=== PATIENT | female | born 1960 | race Caucasian/White ===

== ENCOUNTER → 2020-07-31 08:46 | Outpatient (BNVA) | payer OTHER, SELFPAY | PROVIDERS: PCP Family Medicine; Visit Provider Family Medicine | DX: I10 Essential (primary) hypertension (principal) | CPT/HCPCS: 80053; 80061; 82043; 85025 ==

== ENCOUNTER → 2020-08-20 13:57 | Outpatient (BNVA) | payer OTHER, SELFPAY | PROVIDERS: PCP Family Medicine; Visit Provider Obstetrics & Gynecology | DX: N93.9 Abnormal uterine and vaginal bleeding, unspecified (principal) | CPT/HCPCS: 82670; 83001 ==

== ENCOUNTER → 2020-09-01 15:29 | Outpatient (BNVA) | payer OTHER, SELFPAY | PROVIDERS: PCP Family Medicine; Visit Provider Obstetrics & Gynecology | DX: Z12.4 Encounter for screening for malignant neoplasm of cervix (principal); N93.9 Abnormal uterine and vaginal bleeding, unspecified | CPT/HCPCS: 88175 ==

== ENCOUNTER → 2020-10-02 08:42 | Outpatient (BNVA) | payer OTHER, SELFPAY | PROVIDERS: PCP Family Medicine; Visit Provider Obstetrics & Gynecology | DX: N93.9 Abnormal uterine and vaginal bleeding, unspecified (principal) | CPT/HCPCS: 76830 ==

== ENCOUNTER → 2021-03-02 11:46 | Outpatient (BNVA) | payer OTHER, SELFPAY | PROVIDERS: PCP Family Medicine; Visit Provider Family Medicine | DX: N93.9 Abnormal uterine and vaginal bleeding, unspecified (principal); I10 Essential (primary) hypertension | CPT/HCPCS: 80053 ==

== ENCOUNTER 2021-06-05 08:39 | Outpatient (CLI) | payer OTHER, SELFPAY ==
--- NOTE | 2021-06-05 08:47 | MM_ITS ---
WS: [id number] BILATERAL 3D TOMOSYNTHESIS DIGITAL SCREENING MAMMOGRAPHY WITH CAD CLINICAL INFORMATION: SCREENING HISTORY: Screening mammogram. No current complaints. COMPARISON: January 18, 2020 TECHNIQUE: Bilateral CC and MLO views. FINDINGS: Scattered fibroglandular densities bilaterally. Small oil cyst RIGHT breast unchanged. No suspicious focal mass, asymmetry, calcifications, or architectural distortion. No evidence of malignancy. MM/[place] [id number] IMPRESSION: BI-RADS: 2-Benign FOLLOW UP: 1 Year Follow-up Recommend return to annual screening mammography.
== END 2021-06-05 08:40 | disposition home or self-care (01) ==
LOC: RADSHAW 08:39
PROVIDERS: PCP Family Medicine; Visit Provider Family Medicine
DX: Z12.31 Encounter for screening mammogram for malignant neoplasm of breast (principal)
CPT/HCPCS: 77063; 77067

== ENCOUNTER → 2021-08-07 10:54 | Outpatient (BNVA) | payer OTHER, SELFPAY | PROVIDERS: PCP Family Medicine; Visit Provider Family Medicine | DX: I10 Essential (primary) hypertension (principal) | CPT/HCPCS: 80053; 80061; 85025 ==

== ENCOUNTER → 2022-08-03 10:07 | Outpatient (BNVA) | payer OTHER, SELFPAY | PROVIDERS: PCP Family Medicine; Visit Provider Family Medicine | DX: I10 Essential (primary) hypertension (principal) | CPT/HCPCS: 80053; 80061; 82043; 85025 ==

== ENCOUNTER 2022-08-23 10:05 | Outpatient (CLI) | payer OTHER, SELFPAY ==
--- NOTE | 2022-08-23 10:10 | MM_ITS ---
WS: [id number] BILATERAL SCREENING DIGITAL TOMOSYNTHESIS MAMMOGRAM WITH CAD HISTORY: screening mammogram COMPARISON: 06/05/2021, 01/18/2020 and 01/14/2020 Bilateral CC and MLO views with tomosynthesis and synthetic mammography submitted. Computer aided det ection analyzed. Breast composition: There are scattered areas of fibroglandular density. No suspicious masses, microc alcifications or architectural distortion. Benign calcification central RIGHT breast towards 12:00. MM/[place] [id number] IMPRESSION: BI-RADS: 2-Benign FOLLOW UP: 1 Year Follow-up
== END 2022-08-23 10:06 | disposition home or self-care (01) ==
PROVIDERS: PCP Family Medicine; Visit Provider Family Medicine
DX: Z12.31 Encounter for screening mammogram for malignant neoplasm of breast (principal)
CPT/HCPCS: 77063; 77067

== ENCOUNTER → 2023-08-02 09:12 | Outpatient (BNVA) | payer OTHER, SELFPAY | PROVIDERS: PCP Family Medicine; Visit Provider Family Medicine | DX: I10 Essential (primary) hypertension (principal); Z13.6 Encounter for screening for cardiovascular disorders; E11.9 Type 2 diabetes mellitus without complications; Z01.419 Encounter for gynecological examination (general) (routine) without abnormal findings; Z12.31 Encounter for screening mammogram for malignant neoplasm of breast | CPT/HCPCS: 80053; 80061; 82043; 85025; 87624 ==

== ENCOUNTER 2023-08-25 09:05 | Outpatient (CLI) | payer OTHER, SELFPAY ==
--- NOTE | 2023-08-25 09:30 | MM_ITS ---
WS: [id number] BILATERAL SCREENING DIGITAL TOMOSYNTHESIS MAMMOGRAM WITH CAD HISTORY: screening COMPARISON: 08/23/2022, 06/05/2021 and 06/11/2015 Bilateral CC and MLO views with tomosynthesis and synthetic mammography submitted. Computer aided det ection analyzed. Breast composition: There are scattered areas of fibroglandular density. No suspicious masses, microc alcifications or architectural distortion. Benign calcifications in each breast. MM/[place] [id number] IMPRESSION: BI-RADS: 2-Benign FOLLOW UP: 1 Year Follow-up
== END 2023-08-25 09:06 | disposition home or self-care (01) ==
LOC: RAD 09:05
PROVIDERS: PCP Family Medicine; Visit Provider Family Medicine
DX: Z12.31 Encounter for screening mammogram for malignant neoplasm of breast (principal); R92.323 Mammographic fibroglandular density, bilateral breasts; R92.1 Mammographic calcification found on diagnostic imaging of breast
CPT/HCPCS: 77063; 77067; 80053; 80061; 82043; 85025; 87624

== ENCOUNTER 2024-01-20 19:18 | Emergency (ER) | payer OTHER, SELFPAY ==
[2024-01-20 19:35] VITALS: BP 150/100; PULSE 93; RESP 17; TEMP 36.7; O2SAT 99; BMI 32.3
--- NOTE | 2024-01-20 19:40 | XRR_ITS ---
PROCEDURE INFORMATION: Exam: XR Right Hip Exam date and time: 01/20/2024 8:08 PM Age: 63 years old Clinical indication: Injury or trauma; Fall; Other: Pain TECHNIQUE: Imaging protocol: Radiologic exam of the right hip. Views: 1 view hip with pelvis when performed. COMPARISON: US transvaginal [id number] 10/02/2020 8:44 AM FINDINGS: Bones/joints: Severe right and [id number] left hip osteoarthritis. Soft tissues: Unremarkable. XR/XR hip RT 2-3V wo/w pel* [id number] IMPRESSION: 1. Negative for fracture or dislocation, consider further evaluation with a CT scan if concern for fracture remains clinically given decreased bone mineral density. 2. Severe right and [id number] left hip osteoarthritis.
[2024-01-20] MEDS: dexamethasone 10 mg/mL INJ IM (21:42)
[2024-01-20] MEDS: ketorolac 60 mg/2 mL INJ IM (21:42)
--- NOTE | 2024-01-20 23:22 | W.ED.EXTPRO ---
HPI - Extremity Problem General: Chief complaint: Extremity Injury, Lower Stated complaint: rt hip inj Time Seen by Provider: 01/20/24 20:23 Source: patient Mode of arrival: ambulatory Limitations: no limitations History of Present Illness: Patient is a 63-year-old female presenting to the emergency department complaining of right hip pain onset today. States she has a history of hip pain in the past, is concerned that it was dislocated after she lost her footing earlier today. States that she has been ambulatory, but with a shuffling gait. States it is painful to bear weight on it. No distal neurovascular symptoms reported. No previous history of dislocation, surgery, or fractures to her hips. Does state that she thinks she has arthritis. MD Complaint: joint pain Location: right and other (Hip) Radiation: none Exacerbating factors: weight bearing and walking Associated symptoms: Deny chest pain, fever(s) or rash Related Data Home Medications Medication Instructions Recorded Confirmed mecobalamin (vitamin B12) PO 07/01/20 08/02/23 cholecalciferol (vitamin D3) 50 50 mcg PO DAILY 07/31/20 08/02/23 mcg (2,000 unit) capsule Previous Rx's Medication Instructions Recorded amlodipine 5 mg tablet See Rx Instructions .Route 08/02/23 .COMPLEX #90 tabs losartan 50 mg tablet 50 mg PO DAILY 90 days #90 tabs 08/02/23 prednisone 20 mg tablet 60 mg (3 x 20 mg) PO ONCE 5 days 01/20/24 #15 tabs Allergies Allergy/AdvReac Type Severity Reaction Status Date / Time No Known Allergies Allergy Verified 08/02/23 09:24 Review of Systems General: Reports: 10 or more systems reviewed and unremarkable except in HPI and below Const: Denies: fever(s) or chills Card: Denies: chest pain Resp: Denies: dyspnea or productive cough GI: Denies: abdominal pain, nausea, vomiting or diarrhea : Denies: flank pain Musc: Reports: joint pain; Denies: neck pain, back pain, extremity pain, extremity swelling, joint swelling, joint redness, joint warmth or muscle weakness Skin/Breast: Denies: rash Neuro: Denies: headache(s), numbness in extremities or weakness in extremities PFS ED PFSH: Medical History No pertinent past medical history Denies diabetes, asthma, seizures, DVT/PE PCP: Dr. Chambers Benign essential HTN Diagnosed in 2020 and is currently on medication managed by her primary care provider. Does not have a saddle maker. Surgical History H/O section 1992--emergency History of D&C 1998-miscarriage Family History Unknown Adopted Patient was adopted and does not know details of her biological family history Social History Smoking and tobacco/nicotine status: former use of tobacco/nicotine Alcohol intake: never Substance/Drug Use: never Physical Exam Const: COMMON NORMALS: no acute distress, patient oriented x3, no limitations, healthy appearing, alert and well nourished NUTRITIONAL APPEARANCE: obese HENMT: COMMON NORMALS: normocephalic and atraumatic HEAD & SCALP: normocephalic and atraumatic Neck/C-Spine: COMMON NORMALS: full ROM, supple and no meningeal signs Resp: COMMON NORMALS: normal respiratory effort, No use of accessory muscles and clear to auscultation bilaterally AUSCULTATION: clear to auscultation bilaterally Cardio: COMMON NORMALS: regular rate and regular rhythm RATE: regular rate RHYTHM: regular rhythm Extremity: COMMON NORMALS: normal to inspection, full ROM, capillary refill normal, no joint enlargement and no clubbing, cyanosis or edema NARRATIVE EXTREMITY EXAM: No real reproducible tenderness to palpation of the right hip. Deep tendon reflexes intact. No calf tenderness. 2+ DP/PT pulses. 5/5 strength at the hip and knee joints bilaterally. Neuro: COMMON NORMALS: patient oriented x3, moves all extremities, no focal motor deficits and no sensory deficits noted SENSORIUM/ORIENTATION: Yes alert MENINGEAL SIGNS: Yes no meningeal signs Skin: COMMON NORMALS: no rashes or lesions noted GENERAL SKIN EXAM: no rashes or lesions noted Course Vital Signs: Vital signs: Vital Signs Temperature 98.0 F 01/20/24 19:35 Pulse Rate 93 01/20/24 19:35 Respiratory Rate 17 01/20/24 19:35 Blood Pressure 150/100 01/20/24 19:35 Pulse Oximetry 99 01/20/24 19:35 Oxygen Delivery Me thod Room Air 01/20/24 19:35 MDM - Extremity (Nontraumatic) Medical Decision Making Patient had atraumatic right hip pain after taking an awkward step, x-ray shows signs of pretty severe osteoarthritis of which I think is causing her pain. No clinical findings concerning for fracture as after receiving Decadron and Toradol here in the emergency department, she states that is already feeling better. Informed her to follow-up primary care, states she is moving back to [place] and will establish back there and discuss further management. Will prescribe short course of prednisone to help with any inflammation. Notably, she is now ambulatory out of the emergency department. Lab Data Radiology Impressions Hip/Pelvis X-Ray 01/20/24 19:40 IMPRESSION: 1. Negative for fracture or dislocation, consider further evaluation with a CT scan if concern for fracture remains clinically given decreased bone mineral density. 2. Severe right and [id number] left hip osteoarthritis. All radiology interpretation(s) finalized by discharge Discharge Plan Discharge Patient Disposition: Home Clinical Impression: Osteoarthritis Condition: Stable Prescriptions: New prednisone 20 mg tablet 60 mg PO ONCE 5 Days Qty: 15 0RF No Action cholecalciferol (vitamin D3) 50 mcg (2,000 unit) capsule 50 mcg PO DAILY mecobalamin (vitamin B12) PO losartan 50 mg tablet 50 mg PO DAILY 90 Days Qty: 90 1RF amlodipine 5 mg tablet See Rx Instructions .ROUTE .COMPLEX Qty: 90 1RF Dose Instruction: TAKE ONE TABLET BY MOUTH AT BEDTIME Rx Instructions: TAKE ONE TABLET BY MOUTH AT BEDTIME Discharge Orders: Discharge ED (Routine); Ordered 01/20/24 Ordered By: Ishan Eason Patient Instructions: Osteoarthritis (ED) Activity Restrictions/Additional Instructions: Prednisone as prescribed. Range of motion exercises. Ibuprofen and Tylenol. Follow-up with your primary care provider and return with any new or worsening. Coding Level of Care Code ED [employer] Consult[employer] for [employer]
== END 2024-01-20 22:24 | disposition home or self-care (01) ==
PROVIDERS: Emergency Provider Physician Assistant
DX: M16.11 Unilateral primary osteoarthritis, right hip (principal); Z87.891 Personal history of nicotine dependence; I10 Essential (primary) hypertension
CPT/HCPCS: 73502; 96372; 99284; J1100; J1885